=== PATIENT | male | born 1990 | race Two or more races ===

== ENCOUNTER 2016-08-31 01:34 | Emergency (ER) | payer SELFPAY ==
[~2016-08-31 01:34] MED LIST: CALADRYL LOTIO180 ML
[2016-08-31] MEDS ORDERED: NO MEDICATIONS (01:48)
== END 2016-08-31 02:47 | disposition home or self-care (01) ==
LOC: SED 01:34
DX: T15.02XA Foreign body in cornea, left eye, initial encounter (principal); H10.32 Unspecified acute conjunctivitis, left eye; W45.8XXA Other foreign body or object entering through skin, initial encounter
CPT/HCPCS: 65220; 99283